=== PATIENT | female | born 1945 | race Hispanic/Latino ===

== ENCOUNTER → 2018-05-08 | Day surgery (SDC) | payer MEDICARE ==
[2018-04-30 15:43] LABS: BASOPHILS % 0.4 % (0.0-1.0); EOSINOPHILS # (AUTO) 0.1 (0.0-0.4); EOSINOPHILS % 1.5 % (0.0-6.0); HEMATOCRIT 37.4 % (34.2-44.1); HEMOGLOBIN 12.8 g/dL (12.0-16.0); LYMPHOCYTES # (AUTO) 2.2 (1.0-3.2); LYMPHOCYTES % 46.8 % (18.0-39.1); MEAN CORPUSCULAR HEMOGLOBIN 29.4 pg (28-32); MEAN CORPUSCULAR HGB CONC 34.2 g/dL (31-35); MONOCYTES # (AUTO) 0.4 (0.2-0.8); MONOCYTES % 8.4 % (4.4-11.3); NEUTROPHILS % 42.7 % (38.7-80.0); PLATELET COUNT 222 x10e3/uL (140-360); RED BLOOD COUNT 4.35 x10e6/uL (3.6-5.1); RED CELL DISTRIBUTION WIDTH 13.2 % (11.7-14.4)
[2018-05-02 10:06] LABS: ANION GAP 14.8 mmol/L (8-16); BLOOD UREA NITROGEN 14 mg/dL (7-26); BUN/CREATININE RATIO 18 (6-25); CALCIUM 9.8 mg/dL (8.4-10.2); CARBON DIOXIDE 24 mmol/L (22-29); CHLORIDE 105 mmol/L (98-107); CREATININE, SERUM 0.76 mg/dL (0.57-1.11); EST GLOMERULAR FILTRATION RATE > 60 ML/MIN (60-); POTASSIUM 3.8 mmol/L (3.5-5.1); SODIUM 140 mmol/L (136-145)
[2018-05-02 10:33] LABS: GLUCOSE 109 mg/dL (74-118)
[~2018-05-08] MED LIST: BALANCED SALT SOLN (OPTH) 15 ML BTL IO ONE; BUPIVACAINE HC 0.75% PF 10ML VIAL INJ ONE; CHONDR SU A NA/HYALUR SOD 1 EACH KIT IO ONE; CYCLOPENTOLATE HCL 2% OPTH SOLN 2 ML BTL OP ONE; DOXYCYCLINE HY100 MG PO; EPINEPHRINE HCL 1:1000 1ML 1 MG/ML AMP ONE; GATIFLOXACIN(OPTH) 5 ML LIQD ONE; LEVOTHYROXINE112 MCG PO; LIDOCAINE 2% /EPINEPHRINE 20 ML SDV INJ ONE; LIDOCAINE HCL-PF 4% 40 MG/1 ML 5ML AMP ONE; LOSARTAN POTAS100 MG PO; METFORMIN HCL500 MG PO; MIDAZOLAM HCL 2 MG/2 ML VIAL ONE; PHENYLEPHRINE HCL 2 ML DROPS ONE; PILOCARPINE HCL(OPTH) 15 ML LIQD ONE; POVIDONE IODINE 5% (OPTH) 30 ML BTL ONE; PROPOFOL IV EMULSION 10 MG/ML 20 ML VIAL ONE; TOBRAMYCIN/DEXAMETHASONE(OPTH) 3.5 GM TUBE ONE
--- OUTSIDE RECORDS SUMMARY | 2018-05-08 05:46 | XMS REPORT | Continuity of Care Document ---
Author [facility] [place] [facility] Address Unknown Phone Unavailable Problems Problem Status Onset Date Classification Date Reported Comments Source De Quervain's tenosynovitis Active Problem 01/22/2017 Charleselizabeth Castanon Medications Medication Details Route Status Patient Instructions Ordering Provider Order Date Source Metformin HCl 1 tablet with meals Orally Active 1000 MG Orally PRN Edwin Charles Castanon Doxycycline Hyclate 1 capsule Orally Active 100 MG Orally every 12 hrs Edwin Charles Castanon Losartan Potassium-HCTZ 1 tablet Orally Active 50-12.5 MG Orally Once a day Edwin Charles Castanon Levothyroxine Sodium 1 tablet on an empty stomach in the morning Orally Active 137 MCG Orally Once a day Edwin Charles Castanon Allergies, Adverse Reactions, Alerts Substance Category Reaction Severity Reaction type Status Date Reported Comments Source N.K.D.A. Adverse Reaction Info Not Available Adverse Reaction Active 01/03/2017 Charles Castanon Immunizations Immunization Date Given Site Status Last Updated Comments Source Results Order Name Results Value Reference Range Date Interpretation Comments Source Vital Signs Vital Sign Value Date Comments Source Weight 158 01/03/2017 Charles Castanon Height 61 01/03/2017 Charles Castanon Temperature Oral (F) 97.5 F 01/03/2017 Charles Castanon Heart Rate 70 01/03/2017 Charles Castanon Diastolic (mm Hg) 68 01/03/2017 Charles Castanon Systolic (mm Hg) 132 01/03/2017 Charles Castanon Encounters Location Location Details Encounter Type Encounter Number Reason For Visit Attending Provider ADM Date DC Date Status Source Procedures Procedure Code Date Perfomer Comments Source
--- OUTSIDE RECORDS SUMMARY | 2018-05-08 05:46 | XMS REPORT ---
Author Author Bridgette Pineda [facility] eClinical[employer] Address Unknown Phone Unavailable Care Team Providers Care Meat Packer Name Role Phone Bridgette Pineda CP Unavailable Allergies, Adverse Reactions, Alerts Substance Reaction Event Type N.K.D.A. Info Not Available Non Drug Allergy Problems Problem Type Condition Code Onset Dates Condition Status Assessment De Quervain's tenosynovitis M65.4 Active Problem De Quervain's tenosynovitis M65.4 Active Medications Medication Code System Code Instructions Start Date End Date Status Dosage Metformin HCl ND 94694820122 1000 MG Orally PRN Active 1 tablet with meals Doxycycline Hyclate ND 88765120512 100 MG Orally every 12 hrs Active 1 capsule Losartan Potassium-HCTZ ND 37691128091 50-12.5 MG Orally Once a day Active 1 tablet Levothyroxine Sodium ND 44281217103 137 MCG Orally Once a day Active 1 tablet on an empty stomach in the morning Vital Signs Date/Time: Jan 03, 2017 BMI 29.85 Index Weight 158 lbs Height 61 in Temperature 97.5 F Cardiac Monitoring Heart Rate 70 /min Blood Pressure Diastolic 68 mm Hg Blood Pressure Systolic 132 mm Hg Results No Known Results Summary Purpose eClinicalWorks Submission
--- OUTSIDE RECORDS SUMMARY | 2018-05-08 05:47 | XMS REPORT | Summary of Care ---
Author Author Mila Greer M.A. Organization Unknown Address Unknown Phone Unavailable Care Team Providers Care Mortuary Beautician Name Role Phone Mila Greer M.A. 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 Medications Name Dates Details Losartan Potassium TABS Active Levothyroxine Sodium TABS * Refills: 0 Active Doxycycline Monohydrate CAPS * Refills: 0 Active metFORMIN HCl TABS * Refills: 0 Active Allergies and Adverse Reactions Name Dates Details No Known Drug Allergies (Allergy) Status: Active Past Medical History Name Dates Details History of asthma (V12.69, Z87.09) Status: Resolved History of diabetes mellitus (V12.29, Z86.39) Status: Resolved History of hypertension (V12.59, Z86.79) Status: Resolved Procedures Procedure Dates Details Procedures not documented Immunization Name Dates Details Immunizations not documented Family History Name Dates Details Family history of asthma (V17.5, Z82.5) Comments: Family History Status: Active Social History Name Dates Details - Status: Name Dates Details Never smoker Vital Signs Date Test Result Details No Known Vitals to report Results Date Description Value Details Results not documented Plan of Care Name Dates Details Planned Observations Planned Goals not documented Instructions Name Dates Details Instructions not documented Encounters Appointment; WESTLEY CORDERO M.D. Encounter Diagnosis: Problem not documented On: 06-May-2017 14:30 Appointment; VICENTA FRANK Encounter Diagnosis: Problem not documented On: 10-May-2017 9:30 Appointment; WESTLEY CORDERO M.D. Encounter Diagnosis: Problem not documented On: 10-May-2017 10:00
--- OUTSIDE RECORDS SUMMARY | 2018-05-08 05:47 | XMS REPORT ---
Author Dharmesh Tejeda Organization eClinical[employer] Address Unknown Phone Unavailable Care Team Providers Care Forensic Photographer Name Role Phone Dharmesh Castanon CP Unavailable Allergies No Known Allergies Problems Problem Type Condition Code Onset Dates Condition Status Problem De Quervain's tenosynovitis M65.4 Active Medications No Known Medications Results No Known Results Summary Purpose eClinicalWorks Submission
[2018-05-08 08:25] VITALS: BP 129/53
--- NOTE | 2018-05-08 09:36 | NUR ---
SPIRITUAL CARE - Pre-Surgery Assessment: Pt in bed. Pt reported supportive attention from family and friends. Intervention: I provided pastoral presence, hospitality, and sympathetic listening. I acquainted pt with availability of glass novelty maker while hospitalized. Outcome: Pt expressed appreciation for visit. No need for follow up indicated at this time. [facility] Spiritual Care Department O: [phone] Pager: [phone] ([phone] calling [phone])
== END | disposition home or self-care (01) ==
LOC: OR 05:44
PROVIDERS: ATTEND Ophthalmology
DX: H25.12 Age-related nuclear cataract, left eye (principal); E11.9 Type 2 diabetes mellitus without complications; I10 Essential (primary) hypertension; J45.909 Unspecified asthma, uncomplicated; E03.9 Hypothyroidism, unspecified; Z01.810 Encounter for preprocedural cardiovascular examination; Z01.812 Encounter for preprocedural laboratory examination; Z79.84 Long term (current) use of oral hypoglycemic drugs
CPT/HCPCS: 36415 ×2; 66982; 80048; 82948; 85025; 93005; J0171; J2001; J2250; J2704; V2632

== ENCOUNTER → 2018-07-03 | Day surgery (SDC) | payer MEDICARE ==
[2018-07-02 09:47] LABS: ANION GAP 12.4 mmol/L (8-16); BLOOD UREA NITROGEN 16 mg/dL (7-26); BUN/CREATININE RATIO 22 (6-25); CALCIUM 10.2 mg/dL (8.4-10.2); CARBON DIOXIDE 27 mmol/L (22-29); CHLORIDE 104 mmol/L (98-107); CREATININE, SERUM 0.74 mg/dL (0.57-1.11); EST GLOMERULAR FILTRATION RATE > 60 ML/MIN (60-); GLUCOSE 104 mg/dL (74-118); POTASSIUM 4.4 mmol/L (3.5-5.1); SODIUM 139 mmol/L (136-145)
[2018-07-02 09:54] LABS: BASOPHILS % 0.5 % (0.0-1.0); EOSINOPHILS # (AUTO) 0.1 (0.0-0.4); EOSINOPHILS % 1.8 % (0.0-6.0); HEMOGLOBIN 12.6 g/dL (12.0-16.0); LYMPHOCYTES # (AUTO) 2.3 (1.0-3.2); LYMPHOCYTES % 50.8 % (18.0-39.1); MEAN CORPUSCULAR HEMOGLOBIN 29.7 pg (28-32); MEAN CORPUSCULAR HGB CONC 33.2 g/dL (31-35); MEAN CORPUSCULAR VOLUME 89.6 fL (81-99); MONOCYTES # (AUTO) 0.4 (0.2-0.8); MONOCYTES % 8.6 % (4.4-11.3); NEUTROPHILS # (AUTO) 1.7 (2.1-6.9); NEUTROPHILS % 38.1 % (38.7-80.0); PLATELET COUNT 211 x10e3/uL (140-360); RED BLOOD COUNT 4.24 x10e6/uL (3.6-5.1); RED CELL DISTRIBUTION WIDTH 13.1 % (11.7-14.4)
[~2018-07-03] MED LIST changes: -BALANCED SALT SOLN (OPTH) 15 ML BTL IO ONE; +FENTANYL CITRATE/PF 100MCG/2 ML INJ ONE
[2018-07-03 10:40] VITALS: BP 136/61
== END | disposition home or self-care (01) ==
LOC: OR 07:18
PROVIDERS: ATTEND Ophthalmology
DX: H25.11 Age-related nuclear cataract, right eye (principal); Z01.812 Encounter for preprocedural laboratory examination; I10 Essential (primary) hypertension; J45.909 Unspecified asthma, uncomplicated; E03.9 Hypothyroidism, unspecified; E11.9 Type 2 diabetes mellitus without complications
CPT/HCPCS: 36415 ×2; 66984; 80048; 82948; 85025; J0171; J2001; J2250; J2704; V2632

== ENCOUNTER 2023-09-15 13:48 | Emergency (ER) | payer MEDICARE ==
[~2023-09-15] VITALS: Ht 157.5 cm; Wt 70.8 kg
[~2023-09-15 13:48] MED LIST changes: -BUPIVACAINE HC 0.75% PF 10ML VIAL INJ ONE; -CHONDR SU A NA/HYALUR SOD 1 EACH KIT IO ONE; -CYCLOPENTOLATE HCL 2% OPTH SOLN 2 ML BTL OP ONE; -EPINEPHRINE HCL 1:1000 1ML 1 MG/ML AMP ONE; -FENTANYL CITRATE/PF 100MCG/2 ML INJ ONE; -GATIFLOXACIN(OPTH) 5 ML LIQD ONE; -LIDOCAINE 2% /EPINEPHRINE 20 ML SDV INJ ONE; -LIDOCAINE HCL-PF 4% 40 MG/1 ML 5ML AMP ONE; -MIDAZOLAM HCL 2 MG/2 ML VIAL ONE; -PHENYLEPHRINE HCL 2 ML DROPS ONE; -PILOCARPINE HCL(OPTH) 15 ML LIQD ONE; -POVIDONE IODINE 5% (OPTH) 30 ML BTL ONE; -PROPOFOL IV EMULSION 10 MG/ML 20 ML VIAL ONE; -TOBRAMYCIN/DEXAMETHASONE(OPTH) 3.5 GM TUBE ONE
[2023-09-15 13:50] VITALS: PULSE 99; RESP 18; TEMP 97.8; O2SAT 98
[2023-09-15] MEDS ORDERED: DOXYCYCLINE HY100 MG PO (13:57)
[2023-09-15] MEDS ORDERED: IBUPROFEN200 MG PO (13:57)
[2023-09-15] MEDS ORDERED: MUPIROCIN 2% OINT 22 GM TUBE TOP ONE (14:00)
[2023-09-15] MEDS ORDERED: BACITRACIN ZINC 0.9GM TP ONE ×2 (14:14→14:27)
[2023-09-15] MEDS: LIDOCAINE HCL 2% LOCAL 20 ML VIAL INJ STA (14:44)
[2023-09-15] MEDS: BACITRACIN ZINC 0.9GM TP ONE (14:44)
[2023-09-15] MEDS: TETANUS/DIPHTHERIA TOX ADULT 0.5 ML SYR IM STA (14:45)
== END 2023-09-15 14:40 | disposition home or self-care (01) ==
LOC: FSED 13:51
DX: S61.211A Laceration without foreign body of left index finger without damage to nail, initial encounter (principal); I10 Essential (primary) hypertension; E11.9 Type 2 diabetes mellitus without complications; E03.9 Hypothyroidism, unspecified; E78.5 Hyperlipidemia, unspecified
CPT/HCPCS: 12002; 90471; 90714; J2001

== ENCOUNTER 2024-01-19 14:45 | Emergency (ER) | payer MEDICARE ==
[~2024-01-19] VITALS: Ht 157.5 cm; Wt 65.8 kg
[~2024-01-19 14:45] MED LIST changes: +IBUPROFEN200 MG PO
[2024-01-19 14:50] VITALS: PULSE 90; RESP 18; TEMP 98.5; O2SAT 95
[2024-01-19] MEDS ORDERED: TYLENOL325 MG PO (15:28)
[2024-01-19] MEDS ORDERED: DIPHENHYDRAMINE25 M2 PO (15:28)
[2024-01-19] MEDS ORDERED: AZITHROMYCIN250 MG PO (15:28)
[2024-01-19] MEDS ORDERED: VENTOLIN HFA18 GM INH (15:46)
== END 2024-01-19 15:50 | disposition home or self-care (01) ==
LOC: FSED 14:48
DX: R05.9 Cough, unspecified (principal); J40 Bronchitis, not specified as acute or chronic; J06.9 Acute upper respiratory infection, unspecified; I10 Essential (primary) hypertension; E11.9 Type 2 diabetes mellitus without complications; E78.5 Hyperlipidemia, unspecified; E03.9 Hypothyroidism, unspecified; Z11.52 Encounter for screening for COVID-19
CPT/HCPCS: 0223U; 71046; 83518; 87400; 99283

== ENCOUNTER 2024-05-02 09:01 | Emergency (ER) | payer MEDICARE ==
[~2024-05-02] VITALS: Ht 157.5 cm; Wt 65.1 kg
[~2024-05-02 09:01] MED LIST changes: +AZITHROMYCIN250 MG PO; +DIPHENHYDRAMINE25 M2 PO; +TYLENOL325 MG PO; +VENTOLIN HFA18 GM INH
[2024-05-02] MEDS ORDERED: PROTONIX20 MG PO (09:20)
[2024-05-02] MEDS ORDERED: TIZANIDINE HCL4 MG PO (09:20)
[2024-05-02] MEDS ORDERED: ATORVASTATIN CA20 MG PO (09:20)
[2024-05-02] MEDS ORDERED: DICLOFENAC SODI75 MG (09:20)
[2024-05-02] MEDS ORDERED: FAMOTIDINE20 MG PO (09:20)
[2024-05-02] MEDS ORDERED: LOSARTAN POTASS25 MG PO (09:20)
[2024-05-02] MEDS: ACETAMINOPHEN 325 MG TAB PO ONE (10:15)
[2024-05-02] MEDS: KETOROLAC TROMETHAMINE 30 MG/ML VIAL IV ONE (10:16)
[2024-05-02] MEDS ORDERED: ULTRAM 50MG50 MG PO (10:54)
[2024-05-02] MEDS: DEXAMETHASONE SOD PHOS INJ 4 MG/ML SDV IV ONE (11:05)
[2024-05-02 11:10] VITALS: PULSE 68; RESP 16; TEMP 98.7; O2SAT 98
[2024-05-02] MEDS ORDERED: METFORMIN HCL500 M2 PO (13:01)
== END 2024-05-02 11:10 | disposition home or self-care (01) ==
LOC: FSED 09:07
DX: M25.562 Pain in left knee (principal); M25.462 Effusion, left knee; M79.672 Pain in left foot; M79.671 Pain in right foot; R53.81 Other malaise; I10 Essential (primary) hypertension; E11.9 Type 2 diabetes mellitus without complications; E78.5 Hyperlipidemia, unspecified; E03.9 Hypothyroidism, unspecified; I25.10 Atherosclerotic heart disease of native coronary artery without angina pectoris; K21.9 Gastro-esophageal reflux disease without esophagitis
CPT/HCPCS: 81003; 96374; 96375; 99284; J1100; J1885

== ENCOUNTER 2024-05-29 19:26 | Emergency (ER) | payer MEDICARE ==
[~2024-05-29] VITALS: Ht 157.5 cm; Wt 64.0 kg
[~2024-05-29 19:26] MED LIST changes: +ATORVASTATIN CA20 MG PO; +DICLOFENAC SODI75 MG; +FAMOTIDINE20 MG PO; +LOSARTAN POTASS25 MG PO; +METFORMIN HCL500 M2 PO; +PROTONIX20 MG PO; +TIZANIDINE HCL4 MG PO; +ULTRAM 50MG50 MG PO
[2024-05-29] MEDS ORDERED: IOPAMIDOL 370 MG/ML 100 ML INFUS..BTL INJ ONE (19:50)
[2024-05-29] MEDS: KETOROLAC TROMETHAMINE 30 MG/ML VIAL IV STA (19:59)
[2024-05-29] MEDS: DICYCLOMINE HCL 20 MG/2 ML VIAL IM ONE (20:00)
[2024-05-29] MEDS: FAMOTIDINE 20 MG/2 ML VIAL IV STA (20:00)
[2024-05-29] MEDS: ONDANSETRON HCL INJ 2MG/ML 2ML 2 MG/ML VIAL IV STA (20:00)
[2024-05-29] MEDS: SODIUM CHLORIDE 0.9% 1000ML 1,000 ML IV ONE (20:00)
[2024-05-29] MEDS ORDERED: MACROBID 100 M100 MG PO (22:51)
[2024-05-29 23:24] VITALS: PULSE 64; RESP 16; TEMP 98.1
[2024-05-29 23:44] VITALS: BP 157/70; PULSE 64; RESP 16; TEMP 98.1; O2SAT 97
== END 2024-05-29 23:47 | disposition home or self-care (01) ==
LOC: FSED 19:29
DX: R10.13 Epigastric pain (principal); N39.0 Urinary tract infection, site not specified; I10 Essential (primary) hypertension; E11.65 Type 2 diabetes mellitus with hyperglycemia; E78.5 Hyperlipidemia, unspecified; E03.9 Hypothyroidism, unspecified; M06.9 Rheumatoid arthritis, unspecified; R94.31 Abnormal electrocardiogram [ECG] [EKG]
CPT/HCPCS: 74177; 76705; 80053; 81003; 85025; 93005; 96372; 96374; 96375; 99284; J0500; J1885; J2405; J7030; Q9967; 80076